=== PATIENT | male | born 1990 | race Caucasian/White ===

== ENCOUNTER 2019-01-07 13:55 | Emergency (ER) | payer SELFPAY ==
[2019-01-07] MEDS ORDERED: Orphenadrine 100 MG Tab.ER PO ONE (14:53)
[2019-01-07] MEDS ORDERED: Ketorolac 30 MG/ML SDV IM ONE (14:53)
--- NOTE | 2019-01-07 15:31 | EDM.PDOC ---
ED HPI GENERAL MEDICAL PROBLEM - General Chief Complaint: Back Pain or Injury Stated Complaint: BACK PAIN AND FLU SX Time Seen by Provider: 01/07/19 14:33 Source of Information: Reports: Patient, RN Notes Reviewed History Limitations: Reports: No Limitations - History of Present Illness INITIAL COMMENTS - FREE TEXT/NARRATIVE: Patient is a 28-year-old male who presents to the ED for evaluation of lower back pain. He states that early this morning he was sitting his hotel and he slipped on a patch ice and landed onto his lower back/buttocks area. He states that he had immediate low back pain after this fall, he did take 2 extra strength Tylenol for pain relief but this is not provided much pain relief at all. He does not note a previous injury to his lower back, nor has he felt pain like this before every in his life. He states that walking does aggravate this pain, he states there is some radiation to his right leg. He denies any loss of bowel or bladder. He states that his pain is at a 20 out of 10 currently. Lower Back Pain Score (Numeric/FACES): 10 - Related Data Allergies Allergy/AdvReac Type Severity Reaction Status Date / Time ibuprofen Allergy Hives Verified 01/07/19 14:06 Home Meds: Home Meds Orphenadrine [Norflex] 100 mg PO BID PRN #20 tab 01/07/19 [Rx] traMADol [Ultram] 50 mg PO Q6H PRN #28 tab 01/07/19 [Rx] ED ROS GENERAL - Review of Systems Review Of Systems: See Below Constitutional: Reports: No Symptoms HEENT: Reports: No Symptoms Respiratory: Reports: No Symptoms Cardiovascular: Reports: No Symptoms Endocrine: Reports: No Symptoms GI/Abdominal: Reports: No Symptoms : Reports: No Symptoms Musculoskeletal: Reports: Back Pain (lower back pain), Muscle Stiffness (lower back) Skin: Reports: No Symptoms Neurological: Denies: Numbness, Tingling Psychiatric: Reports: No Symptoms Hematologic/Lymphatic: Reports: No Symptoms Immunologic: Reports: No Symptoms ED EXAM,LOWER BACK PAIN/INJURY - Physical Exam Exam: See Below Exam Limited By: No Limitations General Appearance: Alert, WD/WN, Mild Distress (pt is hunched over the bed with elbows on his knees ) Eye Exam: Bilateral Eye: EOMI, Normal Inspection, PERRL Head: Atraumatic, Normocephalic Neck: Normal Inspection Respiratory/Chest: No Respiratory Distress, Lungs Clear, Normal Breath Sounds, No Accessory Muscle Use, Chest Non-Tender Cardiovascular: Normal Peripheral Pulses, Regular Rate, Rhythm, No Murmur GI/Abdominal: Normal Bowel Sounds, Soft, Non-Tender, No Distention Back Exam: Normal Inspection, Decreased Range of Motion (d/t pin), Muscle Spasm (of lumbar region) Extremities: Normal Inspection, No Pedal Edema, Normal Capillary Refill, Limited Range of Motion (d/t pain in lumbar area) Neurological: Alert, Normal Mood/Affect, Normal Dorsiflexion, Normal Plantar Flexion, Normal Reflexes, No Motor/Sensory Deficits, Oriented x 3. No: Straight Leg Raise (L), Straight Leg Raise (R), Saddle Anesthesia Psychiatric: Normal Affect, Normal Mood Skin Exam: Warm, Dry, Intact, Normal Color, No Rash Course - Vital Signs Last Recorded V/S: Last Vital Signs Temp 97.7 F 01/07/19 14:06 Pulse 86 01/07/19 14:06 Resp 19 01/07/19 14:06 BP 111/90 01/07/19 14:06 Pulse Ox 100 01/07/19 14:06 - Orders/Labs/Meds Orders: Active Orders 24 hr Category Date Time Status Lumbar Spine 2 or 3V [CR] Stat Exams 01/07/19 14:52 Ordered Meds: Medications Discontinued Medications Generic Name Dose Route Start Last Admin Trade Name Freq PRN Reason Stop Dose Admin Ketorolac Tromethamine 30 mg 01/07/19 14:53 01/07/19 15:08 Toradol IM 01/07/19 14:54 30 mg ONETIME ONE Administration Orphenadrine Citrate 100 mg 01/07/19 14:53 01/07/19 15:09 Norflex PO 01/07/19 14:54 100 mg ONETIME ONE Administration - Re-Assessments/Exams Free Text/Narrative Re-Assessment/Exam: 01/07/19 15:35 Patient presents to the ED for the evaluation of lower back pain. Since this was more of a traumatic injury in nature and the first injury he's had like this , I did order lumbar spine x-ray for further evaluation of possible pain etiology, I did order also 100 mg Norflex and 30 mg IM Toradol for pain relief. 01/07/19 16:03 Patient's x-ray is done and demonstrates no acute fracture of his lumbar spine, this was reviewed by Dr. Ruvalcaba and myself. I will give general recommendations and discharge him home. Departure - Departure Time of Disposition: 16:15 Disposition: Home, Self-Care 01 Condition: Fair Clinical Impression: Lumbar back pain - Discharge Information *PRESCRIPTION DRUG MONITORING PROGRAM REVIEWED*: No *COPY OF PRESCRIPTION DRUG MONITORING REPORT IN PATIENT GUADALUPE: No Prescriptions: traMADol [Ultram] 50 mg PO Q6H PRN #28 tab PRN Reason: Pain Instructions: Back Pain, Adult, [id number], Muscle Strain, [id number] Referrals: PCP,None [Primary Care Provider] - Forms: ED Department Discharge Additional Instructions: You have been evaluated in the ED for your lower back pain. Your x-ray demonstrated no acute fracture of you lower back. Please use ice/heat as tolerated to the affected area. You may take tylenol 500 mg q6 hrs for pain relief. Please do so until you have a tolerable level of pain with activity. Do not exceed 4000mg tylenol in a 24 hour time period. You have been given a prescription for tramadol, 50 mg, take one tab every 6 hours as needed for pain relief. You have been given a prescription for Norflex , 100 mg, please take one tab twice a day for muscle spasms. These have been electronically sent to the [facility] [employer] [facility]. Please return to ED if your symptoms should change or worsen. - My Orders Last 24 Hours: My Active Orders 01/07/19 14:52 Lumbar Spine 2 or 3V [CR] Stat - Assessment/Plan Last 24 Hours: My Active Orders 01/07/19 14:52 Lumbar Spine 2 or 3V [CR] Stat
--- NOTE | 2019-01-08 12:11 | CR ---
Lumbar spine: AP and lateral views of the lumbar spine were obtained. Comparison: No previous lumbar spine imaging. Slight posterior disc space narrowing is noted at L1-L2 and L2-L3. Other disc spaces are maintained. Vacuum body heights are maintained. Pedicles as well as transverse and spinous processes are intact. No subluxation or fracture is seen. Sacroiliac joints are within normal limits. Impression: 1. Slight disc space narrowing. Nothing acute is appreciated on two-view lumbar spine study. Diagnostic code #2
== END 2019-01-07 16:28 | disposition home or self-care (01) ==
LOC: JD.ED 13:55
DX: M54.5 Low back pain (principal); Z88.6 Allergy status to analgesic agent
CPT/HCPCS: 72100; 96372; 99283; A9270; J1885

== ENCOUNTER 2019-01-12 17:14 | Emergency (ER) | payer SELFPAY ==
[2019-01-12] MEDS ORDERED: Ketorolac 30 MG/ML SDV IM ONE (18:27)
--- NOTE | 2019-01-12 18:31 | EDM.PDOC ---
ED HPI GENERAL MEDICAL PROBLEM - General Chief Complaint: ENT Problem Stated Complaint: TOOTH PAIN Time Seen by Provider: 01/12/19 17:49 Source of Information: Reports: Patient, RN Notes Reviewed History Limitations: Reports: No Limitations - History of Present Illness INITIAL COMMENTS - FREE TEXT/NARRATIVE: Patient is a 28-year-old male presents to the ED today for the evaluation of dental pain. He states that he has dental pain located in his right lower jaw. He states his been present for around the last 2 days, however it is been increasing in nature. Last night he was not able to sleep with the pain. He states that he last saw dentist around 2 years ago. The patient states that he took 3 tabs of Tylenol, 1 tab of Advil and Orajel with little to no relief for his dental pain. He notes that he has some shooting pains into his ear as well. He further denies any fevers or chills or other feelings of being unwell. 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, Aspirin Right Lower Tooth/Teeth Pain Score (Numeric/FACES): 10 - Related Data Allergies Allergy/AdvReac Type Severity Reaction Status Date / Time ibuprofen Allergy Hives Verified 01/12/19 17:27 Home Meds: Home Meds Orphenadrine [Norflex] 100 mg PO BID PRN #20 tab 01/07/19 [Rx] Amoxicillin/Clavulanate K [Augmentin 875-125 MG] 1 tab PO BID #14 tablet [Rx] Past Medical History HEENT History: Reports: Other (See Below) Other HEENT History: tooth removed to R lower side of mouth Social & Family History - Family History Family Medical History: Noncontributory - Tobacco Use Smoking Status *Q: Current Every Day Smoker Years of Tobacco use: 12 Packs/Tins Daily: 1 - Caffeine Use Caffeine Use: Reports: Energy Drinks - Recreational Drug Use Recreational Drug Use: No ED ROS ENT - Review of Systems Review Of Systems: See Below Constitutional: Denies: Fever, Chills HEENT: Reports: Dental Pain Respiratory: Reports: No Symptoms Cardiovascular: Reports: No Symptoms Endocrine: Reports: No Symptoms GI/Abdominal: Reports: No Symptoms : Reports: No Symptoms Musculoskeletal: Reports: No Symptoms Skin: Reports: No Symptoms Neurological: Reports: No Symptoms Psychiatric: Reports: No Symptoms Hematologic/Lymphatic: Reports: No Symptoms Immunologic: Reports: No Symptoms ED EXAM, ENT - Physical Exam Exam: See Below Exam Limited By: No Limitations General Appearance: Alert, WD/WN, No Apparent Distress Ears: Normal External Exam, Normal Canal, Hearing Grossly Normal, Normal TMs Mouth/Throat: Normal Inspection, Normal Gums, Normal Lips, Normal Oropharynx, Dental Pain (Of the right lower jaw, in the first molar. There is a dental kary noted in this tooth.), Gum Swelling (near the molar affected). No: Muffled Voice, Pharyngeal Erythema, Tongue Swelling, Tonsillar Swelling, Trismus Head: Atraumatic, Normocephalic Respiratory/Chest: No Respiratory Distress, Lungs Clear, Normal Breath Sounds, No Accessory Muscle Use, Chest Non-Tender Cardiovascular: Normal Peripheral Pulses, Regular Rate, Rhythm, No Murmur Extremities: Normal Inspection, Normal Capillary Refill Neurological: Alert, Oriented, Normal Cognition, No Motor/Sensory Deficits Psychiatric: Normal Affect, Normal Mood Course - Vital Signs Last Recorded V/S: Last Vital Signs Temp 98.4 F 01/12/19 17:24 Pulse 90 01/12/19 17:24 Resp 20 01/12/19 17:24 BP 123/85 01/12/19 17:24 Pulse Ox 96 01/12/19 17:24 - Orders/Labs/Meds Meds: Medications Discontinued Medications Generic Name Dose Route Start Last Admin Trade Name Clarice PRN Reason Stop Dose Admin Ketorolac Tromethamine 30 mg 01/12/19 18:27 Toradol IM 01/12/19 18:28 ONETIME ONE - Re-Assessments/Exams Free Text/Narrative Re-Assessment/Exam: 01/12/19 18:37 Patient presents to the ED for the evaluation of tooth pain. He is tender in his right first molar, there is a visible dental kary on this tooth. I have provided with 30 mg IM Toradol for pain relief and send a prescription for Augmentin to the any pharmacy located in the [employer] [facility]. Departure - Departure Time of Disposition: 18:28 Disposition: Home, Self-Care 01 Condition: Fair Clinical Impression: Pain, dental, Dental caries - Discharge Information *PRESCRIPTION DRUG MONITORING PROGRAM REVIEWED*: No *COPY OF PRESCRIPTION DRUG MONITORING REPORT IN PATIENT GUADALUPE: No Prescriptions: Amoxicillin/Clavulanate K [Augmentin 875-125 MG] 1 tab PO BID #14 tablet Instructions: Diet and Dental Disease Referrals: PCP,None [Primary Care Provider] - Forms: ED Department Discharge Additional Instructions: You have been evaluated in the ED for your dental pain. You have been provided with a script for Augmentin. This was electronically sent to [facility] located in [facility] [employer] [facility]. Please take this medication as directed. (1 tab twice daily for 7 days or until gone). Aleve provides good pain relief for dental pain. Please take 1-2 tabs twice daily as needed for pain. You may use hot pack/ ice packs to the affected area as tolerated in 15-20 minute intervals. You will ultimately need to find a dentist to provide definitive management of your dental pain. Please return to the ED if your symptoms change or worsen.
== END 2019-01-12 18:44 | disposition home or self-care (01) ==
LOC: JD.ED 17:14
DX: K02.9 Dental caries, unspecified (principal); F17.210 Nicotine dependence, cigarettes, uncomplicated; Z88.6 Allergy status to analgesic agent
CPT/HCPCS: 96372; 99282; J1885; 99283